=== PATIENT | female | born 1990 | race Caucasian/White ===

== ENCOUNTER 2019-12-07 19:13 | Emergency (ER) | payer OTHER, SELFPAY ==
[2019-12-07 19:28] VITALS: BP 105/54; PULSE 77; RESP 16; TEMP 37.4; O2SAT 100
--- NOTE | 2019-12-07 19:33 | ED.URI ---
HPI - URI/Sore Throat General Chief Complaint: Upper Respiratory Infection Stated Complaint: COUGH Time Seen by Provider: 12/07/19 19:33 Source: patient and RN notes reviewed History of Present Illness HPI Narrative: Patient is a 29-year-old female who presents the urgent care with complaints of a 3-week history of cough. Patient states that for the first week or so she it was a mucousy cough and then she started taking Mucinex which has turned to a dry cough. Patient states she does have a strong history of seasonal allergies as well as asthma. Patient states that she has chronic bronchitis and has been treated for pneumonia in the past. Patient currently denies of any fever or chest pain. Denies of any nausea or vomiting. Denies of any known contact with coronavirus. No other acute complaints. No acute distress noted. Patient aware of the plan of care. Related Data Home Medications Medication Instructions Recorded Confirmed albuterol sulfate 12/07/19 Allergies Allergy/AdvReac Type Severity Reaction Status Date / Time trazodone Allergy Unknown Unknown Verified 12/07/19 19:34 kiwi Allergy Unknown Verified 12/07/19 19:34 Latex, Natural Rubber Allergy Unknown Verified 12/07/19 19:34 tomato Allergy Unknown Verified 12/07/19 19:34 Review of Systems Review of Systems: Narrative: CONSTITUTIONAL: Denies fever, chills, or sweats. EYES: Denies visual changes, redness, or discharge. ENT: Reports of mild rhinorrhea and intermittent congestion CARDIOVASCULAR: Denies chest pain, palpitations, or edema. RESPIRATORY: Reports of dry cough with dyspnea occurring during coughing fits GASTROINTESTINAL: Denies abdominal pain, nausea, vomiting, or diarrhea. GENITOURINARY: Denies dysuria or hematuria. SKIN: Denies rash or itching. MUSCULOSKELETAL: Denies back pain, joint pain, or myalgia. NEUROLOGIC: Denies headache, numbness, or weakness. All other systems reviewed are negative, except as documented in HPI. PMFSH Social History Social History Smoking status: Never smoker Alcohol intake: never Comments At the time of my signature, I reviewed and agree with the nursing past medical, surgical, social, and family history. There is no relevant family history pertinent to the patient complaint. Exam Narrative: Exam Narrative: GENERAL: This is a well-nourished, well-developed patient, in no apparent distress. HEAD: normocephalic, atraumatic. EYES: PERRL. Sclera clear/white. Vision is grossly intact. EARS: External ears normal, auditory canals clear and without drainage, TMs normal without perforation. Hearing grossly intact. NOSE: External nose normal with no obvious nasal discharge, nares without redness, clear rhinorrhea. THROAT: Mucous membranes moist, posterior pharynx clear. Mild postnasal drainage NECK: Neck supple CARDIOVASCULAR: Regular rate and rhythm without murmurs, gallops, or rubs. RESPIRATORY: Clear to auscultation. Slightly diminished right upper lung sounds SKIN: warm, intact with no suspicious lesions or rash, good texture and turgor. NEURO: awake, alert, and oriented to person, place and time. There were no obvious focal neurologic abnormalities. EXTREMITIES: No clubbing, cyanosis, or edema. Course Vital Signs Vital signs: Vital Signs Temperature 99.4 F 12/07/19 19:28 Pulse Rate 77 12/07/19 19:28 Respiratory Rate 16 12/07/19 19:28 Blood Pressure 105/54 L 12/07/19 19:28 Pulse Oximetry 100 12/07/19 19:28 Temperature 99.4 F 12/07/19 19:28 Pulse Rate 77 12/07/19 19:28 Respiratory Rate 16 12/07/19 19:28 Blood Pressure 105/54 L 12/07/19 19:28 Pulse Oximetry 100 12/07/19 19:28 Reviewed MDM - URI/Sore Throat MDM Narrative Medical decision making narrative: Due to patient's history of asthma and chronic bronchitis, will treat to cover possible pneumonia. Advised the patient to complete oral antibiotic regimen as prescribed. Make sure to eat and drink with the medication.
== END 2019-12-07 19:50 | disposition home or self-care (01) ==
PROVIDERS: Emergency Provider Nurse Practitioner Family
DX: J40 Bronchitis, not specified as acute or chronic (principal)
CPT/HCPCS: 99203; G0463